=== PATIENT | female | born 1955 | race Caucasian/White ===

== ENCOUNTER 2024-01-25 08:48 | Outpatient (AMB) | payer BC, SELFPAY ==
[2024-01-25 08:47] VITALS: BP 140/76; PULSE 86; TEMP 36.7; O2SAT 98; BMI 23.9
--- NOTE | 2024-01-25 08:47 | AM.OFFWIN_ITS ---
Intake Vital Signs 01/25/24 08:47 Height 5 ft 5.5 in Weight 146 lb BMI 23.9 BP 140/76 H Blood Pressure Location Lt brachial Position Sitting Pulse 86 Pulse Source Pulse Oximeter Temp 98.0 F Temp Source Temporal Artery Scan Pulse Oximetry (%) 98 Oxygen Delivery Method Room Air Intake Visit Reasons: EP Sore throat, ear pain Intake Note: pt is here sore throat ear pain started 10 days ago Patient Tobacco Use Status: Former Tobacco user Allergies cephalexin [Keflex] Allergy (Unknown, Verified 01/25/24 08:52) rash penicillin V Allergy (Unknown, Verified 01/25/24 08:52) rash Do you need a note to return to daycare/school/sports/work: No HPI HPI Comments History of Present Illness Details 68 y/o female patient who presents to [facility] in clinic with c/o URI symptoms x 10 days now. Reports nose bleeds on/off with clots. [facility] Medical History (Updated 01/29/23 @ 08:48 by Patricia Jimenez MD) Low HDL (under 40) Nocturnal leg cramps Nail lesion Postmenopausal Osteopenia Thyroglossal duct cyst Surgical History History of tonsillectomy History of section History of loop electrical excision procedure (LEEP) History of colonoscopy Family History Father Alcoholism Substance use disorder Mother Lung cancer Thyroid disorder Sister Diabetes mellitus Daughter DIAMOND (maturity onset diabetes mellitus in young) Paternal Grandfather Alcoholism Paternal Uncle Alcoholism Brother No problems noted. Brother No problems noted. Sister CIDP (chronic inflammatory demyelinating polyneuropathy) Sister No problems noted. Son No problems noted. Son No problems noted. Daughter Mental health disorder Daughter No problems noted. Social History Housing: House Alcohol intake: never Patient Tobacco Use Status: Former Tobacco user e-Cigarette/Vaping Use: Never Used service: No Current occupational status: retired Cognitive needs: No Hearing needs: No Vision needs: Yes Review of Systems Const All systems reviewed & are unremarkable except as noted in HPI and below Physical Exam Vital Signs: Last Vital Signs Temp 98.0 F 01/25/24 08:47 Pulse 86 01/25/24 08:47 BP 140/76 H 01/25/24 08:47 Pulse Ox 98 01/25/24 08:47 Oxygen Delivery Method Room Air 01/25/24 08:47 BMI result Body Mass Index 23.9 Const General: comfortable and no acute distress Orientation/consciousness: patient oriented x3 HEENT Head: Yes normocephalic Ears: external ears normal and TM abnormal with fluid behind the TM bilateral; not erythematous, not perforated, not retracted and not scarred General nose exam: Abnormal mucous membranes and turbinates present (No active bleeding) boggy and erythematous Face and sinus: Yes sinuses nontender Mouth: moist mucous membranes Throat: Yes posterior oropharynx normal Resp Effort & Inspection: normal respiratory effort and able to speak in complete sentences Auscultation: clear to auscultation bilaterally, no crackles, no rales, no rhonchi and no wheezes Cardio Rate: regular rate Rhythm: regular rhythm Neuro General: patient oriented x3 Results AMB Rapid Strep AMB Rapid Strep Negative Last Edit by Gokul Ty MA on 01/25/24 09:07 Results Reviewed Results Reviewed: Laboratory Last Values Strep Scn Rapid Clinic Negative 01/25/24 09:07 Assessment & Plan Assessment & Plan (1) Upper respiratory infection: Code(s): J06.9 - Acute upper respiratory infection, unspecified Qualifiers: URI type: unspecified viral URI Qualified Code(s): J06.9 - Acute upper respiratory infection, unspecified Plan: - OTC nasal normal saline to prevent bleeding - Humidifier in the bedroom. - Rest and hydrate well. - RTC if symptoms worse. Medications: New azithromycin 500 mg PO DAILY 3 days 3 tabs 0RF J06.9 - Acute upper respiratory infection, unspecified Coding Level of Care Code Est Pt Level 3 (24908) Diagnoses Viral upper respiratory tract infection J06.9 URI type: unspecified viral URI Time Spent (min) 15
== END 2024-01-25 09:29 | disposition home or self-care (01) ==
PROVIDERS: PCP Internal Medicine; Visit Provider Nurse Practitioner Family
DX: J06.9 Acute upper respiratory infection, unspecified (principal)
CPT/HCPCS: 99213

== ENCOUNTER 2024-01-30 06:21 | Outpatient (REF) | payer BC, SELFPAY ==
[2024-01-30 10:27] LABS: MANUAL DIFF FLAG NO
[2024-01-30 10:40] LABS: Basophils Percent Auto 0.6 % (0-2); Eosinophils Percent Auto 1.1 % (0-4); Hematocrit 37.1 % (37.0-47.0); Imm Gran Pct Auto 0.3 % (0.0-0.4); Lymphocytes Percent Auto 17.1 % (20-40); Mean Corpuscular HGB Conc 32.3 g/dl (31.0-35.0); Mean Corpuscular Hemoglobin 29.4 pg (27.0-33.0); Mean Corpuscular Volume 90.9 fL (80.0-98.0); Mean Platelet Volume 9.3 fL (9.4-12.3); Monocytes Percent Auto 12.8 % (2-11); Neutrophils Absolute Auto 5.9 x10*3/uL (2.0-8.3); Neutrophils Percent Auto 68.1 % (45-73); Platelet Count 345 X10*3/uL (160-400); Red Blood Count 4.08 X10*6/uL (4.20-5.50); Red Cell Distribution Width 12.9 % (11.0-16.0); White Blood Count 8.7 X10*3/uL (4.8-10.8)
[2024-01-30 11:24] LABS: Alanine Aminotransferase 41 U/L (0-31); Albumin Level 3.5 g/dL (3.5-5.0); Alkaline Phosphatase 67 U/L (39-117); Anion Gap 15 (12-20); Aspartate Amino Transferase 38 U/L (5-31); Bilirubin Total 0.2 mg/dL (0.0-1.0); Blood Urea Nitrogen 9 mg/dL (9-16); Calcium 8.8 mg/dL (8.4-10.2); Carbon Dioxide 23 mmol/L (22-29); Chloride 100 mmol/L (96-108); Cholesterol 113 mg/dL (<200); Estimated Glomerular Filt Rate > 60; Glucose Fasting 97 mg/dL (60-99); HDL Cholesterol 26 mg/dL (>40); LDL Cholesterol Calculated 75 mg/dL (<100); Potassium 3.6 mmol/L (3.3-5.1); Sodium 134 mmol/L (135-145); Total Protein 7.4 g/dL (6.5-8.0); Triglycerides 62 mg/dL (<150)
== END 2024-01-30 06:22 | disposition home or self-care (01) ==
LOC: HO.HMGCLDS 06:21
PROVIDERS: PCP Internal Medicine; Visit Provider Internal Medicine
DX: E78.6 Lipoprotein deficiency (principal); Z00.01 Encounter for general adult medical examination with abnormal findings
CPT/HCPCS: 36415; 80053; 80061; 82306; 83735; 84443; 85025

== ENCOUNTER 2024-02-06 08:24 | Outpatient (AMB) | payer BC, SELFPAY ==
[2024-02-06 08:36] VITALS: BP 138/78; PULSE 66; O2SAT 98; BMI 24.9
--- NOTE | 2024-02-06 08:36 | A.OFFPC_ITS ---
<Statement entered by Patricia Jimenez MD - 02/04/25 15:31> This note has been administratively?closed. Vital Signs 02/06/24 08:36 Height 5 ft 5.5 in Weight 152 lb BMI 24.9 BP 138/78 Blood Pressure Location Rt brachial Position Sitting Pulse 66 Pulse Source Pulse Oximeter Pulse Oximetry (%) 98 Oxygen Delivery Method Room Air Intake Visit Reasons: PE Intake Note: pt is here for annual exam Multimedia Technician Required: No Accompanied by: Self / Same As Patient Allergies cephalexin [Keflex] Allergy (Unknown, Verified 02/06/24 08:57) rash penicillin V Allergy (Unknown, Verified 02/06/24 08:57) rash Medication List - Last Reconciled 02/06/24 by Patricia Jimenez MD ascorbate calcium (vitamin C) 500 mg PO DAILY cholecalciferol (vitamin D3) 6,000 units PO DAILY magnesium 500 mg PO DAILY multivitamin 1 tab PO QAM omega-3 fatty acids (Fish Oil Concentrate) 1,000 mg PO DAILY Tobacco use date assessed: 02/06/24 Fall risk assessment: No Falls in past year Last assessed Fall Risk: 02/06/24 Dental Screening Dental Screen Date: 02/06/24 Did you have a dental visit in the last 12 months?: Yes Did you have a dental problem in the last 6 months where you did not have access to dental care?: No Was dental information given to patient?: Patient has dentist [facility] [place] Medical History (Updated 02/06/24 @ 09:29 by Patricia Jimenez MD) Elevated transaminase level Vitamin D deficiency Osteoporosis Acute left ankle pain Low HDL (under 40) Nocturnal leg cramps Nail lesion Postmenopausal Osteopenia Thyroglossal duct cyst Surgical History History of tonsillectomy History of section History of loop electrical excision procedure (LEEP) History of colonoscopy Family History Father Alcoholism Substance use disorder Mother Lung cancer Thyroid disorder Sister Diabetes mellitus Daughter DIAMOND (maturity onset diabetes mellitus in young) Paternal Grandfather Alcoholism Paternal Uncle Alcoholism Brother No problems noted. Brother No problems noted. Sister CIDP (chronic inflammatory demyelinating polyneuropathy) Sister No problems noted. Son No problems noted. Son No problems noted. Daughter Mental health disorder Daughter No problems noted. Social History Housing: House Alcohol intake: never Patient Tobacco Use Status: Former Tobacco user e-Cigarette/Vaping Use: Never Used service: No Current occupational status: retired Cognitive needs: No Hearing needs: No Vision needs: Yes Questionnaire PHQ-9 Over the last 2 weeks, how often have you been bothered by any of the following problems? 1. Little interest or pleasure in doing things: not at all 2. Feeling down, depressed, or hopeless: not at all 3. Trouble falling or staying asleep, or sleeping too much: not at all 4. Feeling tired or having little energy: not at all 5. Poor appetite or overeating: not at all 6. Feeling bad about yourself - or that you are a failure or have let yourself or your family down: not at all 7. Trouble concentrating on things, such as reading the newspaper or watching television: not at all 8. Moving or speaking so slowly that other people could have noticed. Or the opposite - being so fidgety or restless that you have been moving around a lot more than usual: not at all 9. Thoughts that you would be better off or of hurting yourself in some way: not at all Total score: 0 Depression Screening Interpretation: Negative Depression Screening Done: Yes 20112 - PHQ-9 Billing: Yes Source: Developed by Drs. Kian Kerr, Luz Connor, Christopher Lopez and colleagues, with an educational yuki from [employer]. Thrive Questionnaire Date Thrive assessed: 01/29/23 AUDIT C Alcohol Use Questionnaire (AUDIT-C) 1. How often do you have a drink containing alcohol?: Never Total Score: 0 Score Reviewed/Action Taken: Yes MARY-7 AMB Questionnaire MARY-7 Date MARY - 7 assessed: 02/06/24 Feeling nervous, anxious, or on edge: 0 = Not at all Not being able to stop or control worryin = Not at all Worrying too much about different things: 0 = Not at all Trouble relaxin = Not at all Being so restless that it is hard to sit still: 0 = Not at all Becoming easily annoyed or irritable: 0 = Not at all Feeling afraid as if something awful might happen: 0 = Not at all Total MARY-7 score (0-4 normal; 5-9 mild; 10-14 moderate; 15-21 severe): 0 Source: Developed by Drs. Kian Kerr, Luz Connor, Christopher Lopez and colleagues, with an educational yuki from [employer]. MARY-7 Assessment Billing MARY-7 Assessment Tool: MARY-7 Assessment 02631 Physical exam (Primary Care) Vital Signs: Last Vital Signs Pulse 66 02/06/24 08:36 BP 138/78 02/06/24 08:36 Pulse Ox 98 02/06/24 08:36 Oxygen Delivery Method Room Air 02/06/24 08:36 BMI result Body Mass Index 24.9 Tobacco/Smoking Status: Tobacco use Status Tobacco use date assessed 02/06/24 02/06/24 08:39 Patient Tobacco Use Status Former Tobacco user 02/06/24 08:39 e-Cigarette/Vaping Use Never Used 02/06/24 08:39 PHQ-9: PHQ-9 Score PHQ-9: Total score 0 02/06/24 08:43 Depression Screening Interpretation: Negative Thrive Assessment: Date of Thrive Assessment Date Thrive assessed 01/29/23 02/06/24 08:39 Assessment and Plan Assessment & Plan (1) Acute left ankle pain: Code(s): M25.572 - Pain in left ankle and joints of left foot (2) Osteoporosis: Code(s): M81.0 - Age-related osteoporosis without current pathological fracture (3) Low HDL (under 40): Code(s): E78.6 - Lipoprotein deficiency (4) Annual visit for general adult medical examination with abnormal findings: Code(s): Z00.01 - Encounter for general adult medical examination with abnormal findings (5) Vitamin D deficiency: Code(s): E55.9 - Vitamin D deficiency, unspecified (6) Elevated transaminase level: Code(s): R74.01 - Elevation of levels of liver transaminase levels Orders: Orders Vitamin D 25-OH Total 3 Months E55.9 - Vitamin D deficiency, unspecified, M81.0 - Age-related osteoporosis without current pathological fracture, R74.01 - Elevation of levels of liver transaminase levels, Z78.0 - Asymptomatic menopausal state Liver Panel 3 Months E55.9 - Vitamin D deficiency, unspecified, M81.0 - Age- related osteoporosis without current pathological fracture, R74.01 - Elevation of levels of liver transaminase levels, Z78.0 - Asymptomatic menopausal state PT Evaluation and Treatment Today M25.572 - Pain in left ankle and joints of left foot Medications: New cholecalciferol (vitamin D3) 1,250 mcg PO QWEEK 13 caps 0RF 3 months E55.9 - Vitamin D deficiency, unspecified, M81.0 - Age-related osteoporosis without current pathological fracture Coding Level of Care Code Est Pt Prev Care >65y(12712) Diagnoses Acute left ankle pain M25.572 Osteoporosis M81.0 Low HDL (under 40) E78.6 Annual visit for general adult medical examination with abnormal findings Z00.01 Vitamin D deficiency E55.9 Elevated transaminase level R74.01 Additional Codes MARY-7 Assessment Billing - MARY-7 Assessment Tool: MARY-7 Assessment [id number] ([id number])
== END 2024-02-06 09:31 | disposition home or self-care (01) ==
PROVIDERS: PCP Internal Medicine; Visit Provider Internal Medicine
DX: M25.572 Pain in left ankle and joints of left foot (principal); M81.0 Age-related osteoporosis without current pathological fracture; E78.6 Lipoprotein deficiency; Z00.01 Encounter for general adult medical examination with abnormal findings; E55.9 Vitamin D deficiency, unspecified; R74.01 Elevation of levels of liver transaminase levels
CPT/HCPCS: 99499

== ENCOUNTER 2025-02-02 06:27 | Outpatient (REF) | payer BC, SELFPAY ==
[2025-02-02 10:50] LABS: Alanine Aminotransferase 50 U/L (0-31); Albumin Level 3.7 g/dL (3.5-5.0); Alkaline Phosphatase 78 U/L (39-117); Anion Gap 11 (12-20); Aspartate Amino Transferase 63 U/L (5-31); Bilirubin Direct 0.1 mg/dL (0.0-0.5); Bilirubin Total 0.3 mg/dL (0.0-1.0); Blood Urea Nitrogen 15 mg/dL (9-16); Calcium 8.5 mg/dL (8.4-10.2); Carbon Dioxide 23 mmol/L (22-29); Chloride 107 mmol/L (96-108); Cholesterol 150 mg/dL (<200); Estimated Glomerular Filt Rate > 60; Glucose Fasting 93 mg/dL (60-99); HDL Cholesterol 33 mg/dL (>40); LDL Cholesterol Calculated 103 mg/dL (<100); Potassium 4.2 mmol/L (3.3-5.1); Sodium 137 mmol/L (135-145); Total Protein 7.1 g/dL (6.5-8.0); Triglycerides 73 mg/dL (<150)
[2025-02-02 11:07] LABS: Vitamin D 25-OH Total 30.8 ng/mL (>30)
== END 2025-02-02 06:28 | disposition home or self-care (01) ==
LOC: HO.HMGCLDS 06:27
PROVIDERS: PCP Internal Medicine; Visit Provider Internal Medicine
DX: E55.9 Vitamin D deficiency, unspecified (principal); R74.01 Elevation of levels of liver transaminase levels; M81.0 Age-related osteoporosis without current pathological fracture; E78.6 Lipoprotein deficiency; Z78.0 Asymptomatic menopausal state
CPT/HCPCS: 36415; 80053; 80061; 80076; 82248; 82306

== ENCOUNTER 2025-02-10 08:26 | Outpatient (AMB) | payer BC, SELFPAY ==
--- NOTE | 2025-02-10 08:43 | A.OFFPC_ITS ---
Vital Signs 02/10/25 08:49 Height 5 ft 5 in Weight 155 lb BMI 25.8 BP 116/64 Blood Pressure Location Rt brachial Position Sitting Respiration 16 Pulse 76 Pulse Source Pulse Oximeter Temp 98.3 F Temp Source Oral Pulse Oximetry (%) 96 Oxygen Delivery Method Room Air Intake Visit Reasons: Annual PE Intake Note: Pt is here today for her PE: last bone density scan 09/02/18, colonoscopy 06/06/17 Allergies cephalexin [Keflex] Allergy (Unknown, Verified 02/10/25 09:06) rash penicillin V Allergy (Unknown, Verified 02/10/25 09:06) rash Medication List - Last Reconciled 02/10/25 by Patricia Jimenez MD ascorbate calcium (vitamin C) 500 mg PO DAILY cholecalciferol (vitamin D3) 6,000 units PO DAILY magnesium 500 mg PO DAILY multivitamin 1 tab PO QAM omega-3 fatty acids (Fish Oil Concentrate) 1,000 mg PO DAILY Tobacco use date assessed: 02/10/25 Fall risk assessment: No Falls in past year Last assessed Fall Risk: 02/10/25 Dental Screening Dental Screen Date: 02/10/25 Did you have a dental visit in the last 12 months?: Yes Did you have a dental problem in the last 6 months where you did not have access to dental care?: No Was dental information given to patient?: Patient has dentist HPI Annual PE HPI Details 69-year-old lady here today for her phys ical exam. She was found to have osteoporosis on last bone density scan done in 2022 ordered by her OBGYN, Dr. Goldman. Her doctor wants to repeat another bone density scan this year before she starts her on any medication and if it does show osteoporosis, will be referred to [facility] endocrine , per patient. She has been staying active, exercises regularly goes to the [facility], takes vitamin D3 6000 units daily and takes adequate calcium from dietary sources. No history of fractures. Sandee ent states that she is up-to-date with her cervical cancer screening, and had a mammogram done earlier this year with normal findings, will get copy of results. She was seen by Dr. Gomez for her screening colonoscopy in 2016 which showed normal findings, due again in 2026. Patient however states that her doctor has retired and states that she had an issue with the anesthesia given to her duri ng the procedure, would rather do blood test or the Cologuard for screening next time. She is up-to-date with all her vaccinations except for her RSV vaccine. Not interested in getting She sees Dr. Pinto for her routine eye exam, has cataracts which they are watching [facility] Medical History History of vitamin D deficiency Elevated transaminase level Vitamin D deficiency Osteoporosis Acute left ankle pain Low HDL (under 40) Nocturnal leg cramps Nail lesion Postmenopausal Osteopenia Thyroglossal duct cyst Surgical History History of tonsillectomy History of section History of loop electrical excision procedure (LEEP) History of colonoscopy Family History Father Alcoholism Substance use disorder Mother Lung cancer Thyroid disorder Sister Diabetes mellitus Daughter DIAMOND (maturity onset diabetes mellitus in young) Paternal Grandfather Alcoholism Paternal Uncle Alcoholism Brother No problems noted. Brother No problems noted. Sister CIDP (chronic inflammatory demyelinating polyneuropathy) Sister No problems noted. Son No problems noted. Son No problems noted. Daughter Mental health disorder Daughter No problems noted. Social History Housing: House Alcohol intake: never Patient Tobacco Use Status: Former Tobacco user e-Cigarette/Vaping Use: Never Used service: No Current occupational status: retired Cognitive needs: No Hearing needs: No Vision needs: Yes Questionnaire PHQ-9 Over the last 2 weeks, how often have you been bothered by any of the following problems? 1. Little interest or pleasure in doing things: not at all 2. Feeling down, depressed, or hopeless: not at all 3. Trouble falling or staying asleep, or sleeping too much: not at all 4. Feeling tired or having little energy: not at all 5. Poor appetite or overeating: not at all 6. Feeling bad about yourself - or that you are a failure or have let yourself or your family down: not at all 7. Trouble concentrating on things, such as reading the newspaper or watching television: not at all 8. Moving or speaking so slowly that other people could have noticed. Or the opposite - being so fidgety or restless that you have been moving around a lot more than usual: not at all 9. Thoughts that you would be better off or of hurting yourself in some way: not at all Total score: 0 Depression Screening Interpretation: Negative Depression Screening Done: Yes 82938 - PHQ-9 Billing: Yes Source: Developed by Drs. Kian Kerr, Luz Connor, Christopher Lopez and colleagues, with an educational yuki from [employer]. Thrive Questionnaire Date Thrive assessed: 02/10/25 I am a: Patient What is your living situation today?: I have a steady place to live Within the past 12 months, did the food you bought not last and you didn't have the money to get more?: Never true Within the past 12 months, did you worry whether your food would run out before you got money to buy more?: Never true Do you have trouble paying for medicines?: No Do you have trouble getting transportation to medical appointments?: No Do you have trouble paying your heating and electricity bill?: No Do you have trouble taking care of your child, family member or friend?: No Do you have trouble with day-to-day activities such as bathing, preparing meals, shopping, managing finances, etc.?: No Are you currently unemployed and looking for a job?: No Are you interested in more education?: No Please select the resources that you would like help with: None Currently or been in a relationship where the following occur: No concerns reported THRIVE Score: 0 AUDIT C Alcohol Use Questionnaire (AUDIT-C) 1. How often do you have a drink containing alcohol?: Never Total Score: 0 MARY-7 AMB Questionnaire MARY-7 Date MARY - 7 assessed: 02/10/25 Feeling nervous, anxious, or on edge: 1 = Several days Not being able to stop or control worryin = Several days Worrying too much about different things: 1 = Several days Trouble relaxin = Not at all Being so restless that it is hard to sit still: 0 = Not at all Becoming easily annoyed or irritable: 0 = Not at all Feeling afraid as if something awful might happen: 0 = Not at all Total MARY-7 score (0-4 normal; 5-9 mild; 10-14 moderate; 15-21 severe): 3 Source: Developed by Drs. Kian Kerr, Luz Connor, Christopher Lopez and colleagues, with an educational yuki from [employer]. MARY-7 Assessment Billing MARY-7 Assessment Tool: MARY-7 Assessment 07211 Review of Systems Const Denies body aches, Denies fatigue, Denies fever(s), Denies headache(s) and Denies weakness Eyes Details: She sees Dr. Pinto yearly for routine eye exam Denies change in vision, Denies eye discharge, Denies itchy eyes and Reports requires corrective lenses ENT Denies dizziness, Denies headache(s), Denies nasal congestion, Denies nasal discharge and Denies sore throat Card Denies chest pain, Denies lightheadedness, Denies palpitations and Denies dysp vlad Resp Denies chest congestion, Denies cough, Denies dyspnea and Denies wheezing GI Denies abdominal pain, Denies change in bowel habits and Denies heartburn Denies urinary frequency, Denies dysuria and Denies urinary urgency Musc Reports as per HPI Skin/Breast Denies breast swelling, Denies breast skin changes, Denies breast mass and Denies rash Neuro Denies dizziness, Denies headache(s) and Denies weakness Psych Denies anxiety and Denies depression Endo Denies fatigue, Denies polydipsia, Denies polyuria and Denies palpitations Albert/Lymph Denies easy bruising Aller/Immun Denies itchy eyes, Denies seasonal rhinorrhea and Denies wheezing Physical exam (Primary Care) Vital Signs: Last Vital Signs Temp 98.3 F 02/10/25 08:49 Pulse 76 02/10/25 08:49 Resp 16 02/10/25 08:49 BP 116/64 02/10/25 08:49 Pulse Ox 96 02/10/25 08:49 Oxygen Delivery Method Room Air 02/10/25 08:49 BMI result Body Mass Index 25.8 Tobacco/Smoking Status: Tobacco use Status Tobacco use date assessed 02/10/25 02/10/25 08:45 Patient Tobacco Use Status Former Tobacco user 02/10/25 08:45 e-Cigarette/Vaping Use Never Used 02/10/25 08:45 PHQ-9: PHQ-9 Score PHQ-9: Total score 0 02/10/25 09:07 Depression Screening Interpretation: Negative Thrive Assessment: Date of Thrive Assessment Date Thrive assessed 02/10/25 02/10/25 08:45 Currently or been in a relationship where the following occur: No concerns reported Advance Care Planning discussion: Completed/Scanned Date of discussion: 02/10/25 Who was present: Patient Forms completed: Health Care Proxy Time spent: 16-45 minutes Actual minutes spent: 2 Const General: no acute distress and alert Nutritional Appearance: average body habitus Orientation/consciousness: patient oriented x3 Limitations: no limitations HENMT Head: Yes normocephalic Ears: hearing grossly normal bilaterally, TM's normal bilaterally and EAC's normal General nose exam: Normal external nose present and No nasal discharge present Face and sinus: Yes normal facial exam and Yes sinuses nontender Eyes General: appearance normal, both eyes and all related structures Neck Neck: Yes full ROM, Yes no lymphadenopathy and Yes supple Chest Other: Up-to-date with her screening mammogram, done at [facility] 09/02/2024 with benign findings Resp Effort & Inspection: normal respiratory effort and able to speak in complete sentences Auscultation: clear to auscultation bilaterally Cardio Other: S1-S2 present regular rate and rhythm GI Palpation (GI): Soft to palpation, nontender, no guarding and no masses Auscultation: normal bowel sounds General: Yes no CVA tenderness Back/Spine/Pelvis Back: no CVA tenderness Skin General skin exam: no rashes or lesions noted Neuro General: patient oriented x3, gait normal, moves all extremities, no focal motor deficits and CN's II-XI intact bilaterally Extrem Other: Varicose veins noted in left lower extremity extending from thigh to lower leg, left calf is slightly bigger than right, no calf tenderness General: Yes full ROM, Yes no joint enlargement, Yes no pedal edema, Yes no calf tenderness and Yes normal gait Psych Appearance: grossly normal Mental Status: mental status grossly normal Affect: normal affect Thought process: Normal thought process present Results Reviewed Results Reviewed: Name: Kaitlynn Hurtado Age/Sex: 69/F : 1955 Unit#: [id number] Attend Dr: Patricia Jimenez MD Re02/02/25 Status: DEP REF Location: [facility] Disch: SPEC : [id number] HITESH: 02/02/25 STATUS: COMP REQ : [id number] RECD: 02/02/25-[address]: Patricia Jimenez MD COMP: 02/02/25 ENTERED: 02/02/[address]: ORDERED: CMP Fast, Liver Panel, Lipid Panel, Vitamin D 25-OH Test Result Flag Reference Sodium 137 135-145 mmol/L Potassium 4.2 3.3-5.1 mmol/L CL 107 96-108 mmol/L CO2 23 22-29 mmol/L Gap 11 L 12-20 BUN 15 9-16 mg/dL Creat 0.74 0.5-1.4 mg/dL eGFR > 60 Chronic Kidney Disease: Estimated GFR < 60 mL/min/1.73m2 Severe Kidney Disease: Estimated GFR < 15 mL/min/1.73m2 FBS 93 60-99 mg/dL CA 8.5 8.4-10.2 mg/dL Total Bili 0.3 0.0-1.0 mg/dL Direct Bili 0.1 0.0-0.5 mg/dL AST (GOT) 63 H 5-31 U/L ALT (GPT) 50 H 0-31 U/L Protein, Total 7.1 6.5-8.0 g/dL Alb 3.7 3.5-5.0 g/dL Triglyceride 73 <150 mg/dL Desirable Triglyceride: less than 150 mg/dL Borderline High Triglyceride 150-199 mg/dL High Triglyceride: 200-499 mg/dL Very High Triglyceride: greater than or equal to 5OO mg/dL Cholesterol 150 <200 mg/dL Desirable Cholesterol: less than 200 mg/dL Borderline High Cholesterol: 200-239 mg/dL High Cholesterol: greater than 239 mg/dL LDL Calculated 103 H <100 mg/dL Desirable LDL: less than 100 mg/dL Near Optimal/Above Optimal LDL: 110-129 mg/dL Borderline High LDL: 130-159 mg/dL High LDL: 160-189 mg/dL Very High LDL: greater than or equal to 190 mg/dL HDL 33 L >40 mg/dL Desirable HDL: greater than 40 mg/dL Note: This HDL assay may give artificially low results in patients with liver disease. Alk Phos 78 39-117 U/L Vitamin D 25-OH 30.8 >30 ng/mL Health Based Reference Values* < 20 ng/mL Deficient 20-30 ng/mL Insufficient > 30 ng/mL Sufficient Coding Level of Care Code Est Pt Prev Care >65y(36503) Diagnoses Annual visit for general adult medical examination with abnormal findings Z00.01 Elevated transaminase level R74.01 Age-related osteoporosis without current pathological fracture M81.0 Osteoporosis type: age-related Presence of current pathological fracture: without current pathological fracture Advanced directives, counseling/discussion Z71.89 Additional Codes PHQ-9 - 60206 - PHQ-9 Billing: Yes ([id number]) Vital Signs *Quality* - Advance Care Planning discussion: Completed/Scanned ([id number]) Vital Signs *Quality* - Time spent: 16-45 minutes ([id number]) MARY-7 Assessment Billing - MARY-7 Assessment Tool: MARY-7 Assessment 00549 ([id number]) Assessment & Plan Assessment & Plan (1) Annual visit for general adult medical examination with abnormal findings: Code(s): Z00.01 - Encounter for general adult medical examination with abnormal findings Plan: Recent fasting lab results reviewed with patient. Continue regular d dental visit every 6 months and regular eye exams, at least every 2 years, sees Dr. Pinto. Take adequate calcium in diet and vitamin-D 3 at 2000 IU per cap once a day, in addition to weight-bearing exercises to help maintain good muscle tone and weight control. Instructed to do self-breast exam, and continue with t yearly mammogram, ordered by her OBGYN, gets it done in the [facility].. She is up-to-date with all her vaccinations, but does not want to get RSV vaccine. She is up-to-date with her screening colonoscopy done in 2017, colon cancer screening not due again until 2026. (2) Elevated transaminase level: Code(s): R74.01 - Elevation of levels of liver transaminase levels Category: Medical Plan: Will continue to monitor, patient denies any abdominal pain, no history of jaundice, does not take Tylenol or drink any alcoholic beverage (3) Osteoporosis: Code(s): M81.0 - Age-related osteoporosis without current pathological fracture Category: Medical Qualifiers: Osteoporosis type: age-related Presence of current pathological fracture: without current pathological fracture Qualified Code(s): M81.0 - Age- related osteoporosis without current pathological fracture Plan: Patient states that she is scheduled to have another repeat bone density scan done later ordered by her OBGYN, continue taking vitamin-D 3 supplements taking adequate calcium from dietary sources and doing regular weight-bearing exercise. (4) Advanced directives, counseling/discussion: Code(s): Z71.89 - Other specified counseling Plan: Initiated the conversation about Advanced Directives. Advanced Directives help patients prepare for current and future decisions about their medical treatment and place of care. Discussed with patient that it is a process where a patients current condition and prognosis are reviewed, their wishes for information regarding their illness are elicited, and likely medical dilemmas are presented and options discussed. The form can be amended as needed, reviewed yearly and make changes as needed Orders: Orders TSH reflex Free T4 1 Year E78.6 - Lipoprotein deficiency, M81.0 - Age-related osteoporosis without current pathological fracture, R74.01 - Elevation of levels of liver transaminase levels, Z13.1 - Encounter for screening for diabetes mellitus, Z13.220 - Encounter for screening for lipoid disorders, Z83.49 - Family history of other endocrine, nutritional and metabolic diseases Alanine Aminotransferase 1 Year E78.6 - Lipoprotein deficiency, M81.0 - Age- related osteoporosis without current pathological fracture, R74.01 - Elevation of levels of liver transaminase levels, Z13.1 - Encounter for screening for diabetes mellitus, Z13.220 - Encounter for screening for lipoid disorders, Z83.49 - Family history of other endocrine, nutritional and metabolic diseases Lipid Panel 1 Year E78.6 - Lipoprotein deficiency, M81.0 - Age-related osteoporosis without current pathological fracture, R74.01 - Elevation of levels of liver transaminase levels, Z13.1 - Encounter for screening for diabetes mellitus, Z13.220 - Encounter for screening for lipoid disorders, Z83.49 - Family history of other endocrine, nutritional and metabolic diseases Vitamin D 25-OH Total 1 Year E78.6 - Lipoprotein deficiency, M81.0 - Age- related osteoporosis without current pathological fracture, R74.01 - Elevation of levels of liver transaminase levels, Z13.1 - Encounter for screening for diabetes mellitus, Z13.220 - Encounter for screening for lipoid disorders, Z83.49 - Family history of other endocrine, nutritional and metabolic diseases Aspartate Amino Transferase 1 Year E78.6 - Lipoprotein deficiency, M81.0 - Age- related osteoporosis without current pathological fracture, R74.01 - Elevation of levels of liver transaminase levels, Z13.1 - Encounter for screening for diabetes mellitus, Z13.220 - Encounter for screening for lipoid disorders, Z83.49 - Family history of other endocrine, nutritional and metabolic diseases Basic Metabolic Panel Fasting 1 Year E78.6 - Lipoprotein deficiency, M81.0 - Age-related osteoporosis without current pathological fracture, R74.01 - Elevation of levels of liver transaminase levels, Z13.1 - Encounter for scre ening for diabetes mellitus, Z13.220 - Encounter for screening for lipoid disorders, Z83.49 - Family history of other endocrine, nutritional and metabolic diseases
[2025-02-10 08:49] VITALS: BP 116/64; PULSE 76; RESP 16; TEMP 36.8; O2SAT 96; BMI 25.8
== END 2025-02-10 09:28 | disposition home or self-care (01) ==
LOC: HO.HMCC 08:27
PROVIDERS: PCP Internal Medicine; Visit Provider Internal Medicine
DX: Z00.01 Encounter for general adult medical examination with abnormal findings (principal); R74.01 Elevation of levels of liver transaminase levels; M81.0 Age-related osteoporosis without current pathological fracture; Z71.89 Other specified counseling; Z00.00 Encounter for general adult medical examination without abnormal findings

== ENCOUNTER → 2025-02-10 08:26 | Outpatient (BNVA) | payer BC, SELFPAY | PROVIDERS: PCP Internal Medicine; Visit Provider Internal Medicine | DX: Z00.01 Encounter for general adult medical examination with abnormal findings (principal); R74.01 Elevation of levels of liver transaminase levels; M81.0 Age-related osteoporosis without current pathological fracture; Z71.89 Other specified counseling | CPT/HCPCS: 96127 ==